=== PATIENT | male | born 1990 | race Caucasian/White ===

== ENCOUNTER 2018-11-30 16:37 | Inpatient (IN) | payer MEDICAID ==
[~2018-11-30] VITALS: Ht 182.9 cm; Wt 113.3 kg
[2018-11-30 17:11] LABS: BASOPHIL % 0.5 % (0-2); PLATELET COUNT 310 x10^3mcL (130-400); RED CELL DISTRIBUTION WIDTH 13.7 % (11.5-14.5)
[2018-11-30 17:24] LABS: CALCIUM 8.4 mg/dL (8.5-10.1); CARBON DIOXIDE 26.7 mmol/L (21-32); CHLORIDE SERUM 108 mmol/L (98-107); CREATININE SERUM 0.8 mg/dL (0.7-1.3); GFR1 > 60 mL/min; GLUCOSE SERUM 119 mg/dL (74-106); POTASSIUM SERUM 4.3 mmol/L (3.5-5.1); SODIUM SERUM 143 mmol/L (136-145)
[2018-11-30 17:29] LABS: ALBUMIN 3.8 g/dL (3.4-5.0); ALKALINE PHOSPHATASE 109 U/L (46-116); ALT/SGPT 101 U/L (16-63); AST/SGOT 37 U/L (15-37); TOTAL PROTEIN, SERUM 7.3 g/dL (6.4-8.2)
[2018-11-30 17:30] LABS: CHOLESTEROL 238 mg/dL (<200)
[2018-11-30 17:31] LABS: BILIRUBIN TOTAL < 0.1 mg/dL (0.20-1.00)
[2018-11-30 17:50] LABS: AMPHETAMINE QUAL UR NONE DETECTED (See below)
[2018-11-30] MEDS ORDERED: NEURONTIN100 MG (18:41)
[2018-11-30] MEDS ORDERED: SEROQUEL25 MG PO (18:42)
[2018-11-30] MEDS ORDERED: ZOLOFT25 MG PO (18:42)
[2018-11-30 19:02] LABS: AMYLASE 55 U/L (25-115); HDL CHOLESTEROL 39 mg/dL (40-60); LIPASE 163 IU/L (73-393); MAGNESIUM 2.2 mg/dL (1.8-2.4); PHOSPHOROUS 4.6 mg/dL (2.5-4.9)
[2018-11-30 19:04] LABS: CHOLESTEROL 243 mg/dL (<200); CHOLESTEROL/HDL RATIO 6.2; TRIGLYCERIDES 500 mg/dL (<150)
[2018-11-30 19:10] LABS: T3 TOTAL 1.04 ng/mL
[2018-11-30 19:26] LABS: FREE T4 0.84 ng/dL (0.76-1.46); FREE THYROXINE INDEX 2.2 ug/dL (1.4-4.5); T4(THYROXINE) 6.6 ug/dL (4.7-13.3)
[2018-11-30 19:28] LABS: microscopic required? NO
[2018-11-30 20:23] LABS: UA SPECIFIC GRAVITY <=1.005 (1.005-1.035); urine erythrocyte NEGATIVE (NEGATIVE)
[2018-11-30 21:00] VITALS: BP 159/101
[2018-11-30 21:28] VITALS: BP 158/79
[2018-11-30 22:00] VITALS: BP 110/70
[2018-12-01 00:35] VITALS: BP 107/75
[2018-12-01 04:00] VITALS: BP 100/70
[2018-12-01 05:58] LABS: ALBUMIN 3.4 g/dL (3.4-5.0); ALKALINE PHOSPHATASE 88 U/L (46-116); ALT/SGPT 92 U/L (16-63); AST/SGOT 47 U/L (15-37); BILIRUBIN DIRECT 0.04 mg/dL (0.0-0.2); BILIRUBIN TOTAL 0.06 mg/dL (0.20-1.00); CALCIUM 8.3 mg/dL (8.5-10.1); CHLORIDE SERUM 107 mmol/L (98-107); CREATININE SERUM 0.8 mg/dL (0.7-1.3); GFR1 > 60 mL/min; GLUCOSE SERUM 91 mg/dL (74-106); MAGNESIUM 2.1 mg/dL (1.8-2.4); PHOSPHOROUS 4.2 mg/dL (2.5-4.9); POTASSIUM SERUM 4.1 mmol/L (3.5-5.1); SODIUM SERUM 143 mmol/L (136-145); TOTAL PROTEIN, SERUM 6.6 g/dL (6.4-8.2)
[2018-12-01 06:04] LABS: BASOPHIL % 0.3 % (0-2); PLATELET COUNT 292 x10^3mcL (130-400); RED CELL DISTRIBUTION WIDTH 13.9 % (11.5-14.5)
[2018-12-01 12:01] VITALS: BP 150/80
[2018-12-01 16:11] VITALS: BP 137/84
[2018-12-01 19:15] VITALS: BP 155/109
[2018-12-01 23:15] VITALS: BP 144/86
[2018-12-02 03:10] VITALS: BP 131/81
[2018-12-02 05:16] LABS: CALCIUM 8.4 mg/dL (8.5-10.1); CARBON DIOXIDE 27.2 mmol/L (21-32); CHLORIDE SERUM 108 mmol/L (98-107); CREATININE SERUM 0.8 mg/dL (0.7-1.3); GFR1 > 60 mL/min; GLUCOSE SERUM 89 mg/dL (74-106); PHOSPHOROUS 4.1 mg/dL (2.5-4.9); SODIUM SERUM 143 mmol/L (136-145)
[2018-12-02 05:17] LABS: BASOPHIL % 0.3 % (0-2); PLATELET COUNT 273 x10^3mcL (130-400); RED CELL DISTRIBUTION WIDTH 13.9 % (11.5-14.5)
[2018-12-02 07:40] VITALS: BP 121/78
[2018-12-02 11:24] VITALS: BP 132/64
[2018-12-03 05:58] VITALS: BP 114/59
[2018-12-03 06:36] LABS: CARBON DIOXIDE 27.2 mmol/L (21-32); CHLORIDE SERUM 108 mmol/L (98-107); CREATININE SERUM 0.7 mg/dL (0.7-1.3); GFR1 > 60 mL/min; GLUCOSE SERUM 97 mg/dL (74-106); MAGNESIUM 2.1 mg/dL (1.8-2.4); PHOSPHOROUS 4.3 mg/dL (2.5-4.9); POTASSIUM SERUM 3.7 mmol/L (3.5-5.1); SODIUM SERUM 143 mmol/L (136-145)
[2018-12-03 06:37] LABS: BASOPHIL % 0.5 % (0-2); PLATELET COUNT 276 x10^3mcL (130-400); RED CELL DISTRIBUTION WIDTH 13.4 % (11.5-14.5)
[2018-12-03 09:02] VITALS: BP 146/86
[2018-12-03 13:46] VITALS: BP 131/84
[2018-12-03 18:14] VITALS: BP 133/88
[2018-12-03 20:36] VITALS: BP 141/89
[2018-12-04 05:21] VITALS: BP 124/61
[2018-12-04 10:55] VITALS: BP 148/97
[2018-12-04 14:37] VITALS: BP 177/111
[2018-12-04 19:20] VITALS: BP 151/104
[2018-12-05 04:36] VITALS: BP 155/92
[2018-12-05 09:09] VITALS: BP 135/75
[2018-12-05 12:03] VITALS: BP 137/96
[2018-12-05 17:13] VITALS: BP 141/89
[2018-12-06 05:43] VITALS: BP 125/84
[2018-12-06 08:42] VITALS: BP 139/94
[2018-12-06 13:19] VITALS: BP 139/94
== END 2018-12-06 13:30 | disposition home or self-care (01) | DRG 773 ==
LOC: ED 16:37 → IC 17:50 → DU 17:50 → IC 18:36 → DU 12-02 14:05
PROVIDERS: Emergency Medicine; Internal Medicine; ADMIT Family Medicine
DX: F10.129 Alcohol abuse with intoxication, unspecified (principal); F11.10 Opioid abuse, uncomplicated; J96.00 Acute respiratory failure, unspecified whether with hypoxia or hypercapnia; K72.00 Acute and subacute hepatic failure without coma; G92 Toxic encephalopathy; F15.10 Other stimulant abuse, uncomplicated; R74.0 Nonspecific elevation of levels of transaminase and lactic acid dehydrogenase [LDH]; I10 Essential (primary) hypertension; G40.909 Epilepsy, unspecified, not intractable, without status epilepticus; E78.5 Hyperlipidemia, unspecified; E66.9 Obesity, unspecified; Y90.8 Blood alcohol level of 240 mg/100 ml or more; Z68.32 Body mass index [BMI] 32.0-32.9, adult
CPT/HCPCS: 36600; 82962; 84439; G0480; J2060; J3490; J7030; Q0092